=== PATIENT | female | born 1955 | race Caucasian/White ===

== ENCOUNTER 2024-10-14 16:26 | Inpatient (IN) ==
[2024-10-14] MEDS: Lactated Ringers SEPSIS* BAG 1,910 ML IV ONE (17:35)
[2024-10-14] MEDS: Piperacillin/Tazobac 3.375 BAG 3.375 GM/100 ML BAG IV ONE (17:36)
[2024-10-14 17:52] LABS: ABS Lymphocytes 1.6 10^3/uL (1.0-4.8); ABS Monocytes 1.4 10^3/uL (0.0-0.9); ABS Neutrophils 6.8 10^3/uL (1.5-7.6); ABS Nucleated RBC 0.01 10^3/ul; Eosinophil % 0.4 %; Hematocrit 33.6 % (35-45); Hemoglobin 11.1 g/dL (11.5-14.3); Lymphocyte % 16.6 %; Mean Corpuscular Volume 93.7 fL (80-97); Mean Platelet Volume 8.1 fL (7.5-11.2); Nucleated Red Blood Cells % 0.1 %/100WBC (0.0-0.8); Platelet Count 178 10^3/uL (150-450); Red Blood Count 3.59 10^6/uL (3.63-4.92); Red Cell Distribution Width 16.1 % (12-17); White Blood Count 9.9 10^3/uL (3.8-11.8)
[2024-10-14 17:54] LABS: Urine Appearance Clear; Urine Bilirubin Negative (Negative); Urine Blood 1+ (Negative); Urine Color Light-Yellow; Urine Glucose Negative (Negative); Urine Ketones Negative (Negative); Urine Nitrite Negative (Negative); Urine Protein 1+ (>=30 mg/dL) (Negative); Urine Specific Gravity 1.014 (1.002-1.030); Urine Urobilinogen Negative (Negative); Urine pH 5.5 (5.0-8.0)
[2024-10-14 18:15] LABS: INR 1.56 (0.85-1.14)
[2024-10-14 18:31] LABS: ALT 7 U/L (7-52); Albumin/Globulin Ratio 1.3 (1-3); Alkaline Phosphatase 54 U/L (35-149); Anion Gap 9 mmol/L (2-16); Blood Urea Nitrogen 19 mg/dL (6-24); C Reactive Protein 167.31 mg/L (<8.01); CO2 Carbon Dioxide 23 mmol/L (22-32); Calcium 7.7 mg/dL (8.6-10.3); Chloride 106 mmol/L (101-111); Creatinine, Serum 0.49 mg/dL (0.51-0.95); Globulin 2.4 g/dL (2-4); Glucose 95 mg/dL (70-100); Sodium 138 mmol/L (135-145); Total Bilirubin 0.4 mg/dL (0.2-1.0); Total Protein 5.4 g/dL (6.4-8.9); eGFR CKD-EPI 101.3 (>60)
[2024-10-14 18:44] LABS: Urine Bacteria Absent /HPF (Absent); Urine Red Blood Cell 2+(6-10/hpf) /HPF (0-Trace); Urine Squamous Epithelial Cell Present /HPF (Absent); Urine White Blood Cell 1+(6-10/hpf) /HPF (0-Trace)
[2024-10-14 19:23] LABS: Potassium Redraw 4.1 mmol/L (3.5-5.0)
[2024-10-14] MEDS: LaCOSAMide ORALSYR LIQ 10 MG/ML G TUBE SCH (21:30)
[2024-10-14] MEDS ORDERED: Senna TAB 8.6 mg TAB FEED TUBE PRN (22:09)
[2024-10-14] MEDS: Cefepime 2 GM in Dextrose 2 GM/50 ML BAG IV SCH (23:01)
[2024-10-15 06:22] LABS: ABS Eosinophils 0.1 10^3/uL (0.0-0.5); ABS Lymphocytes 1.5 10^3/uL (1.0-4.8); ABS Monocytes 1.1 10^3/uL (0.0-0.9); ABS Neutrophils 5.1 10^3/uL (1.5-7.6); Eosinophil % 1.6 %; Hematocrit 34.9 % (35-45); Hemoglobin 11.6 g/dL (11.5-14.3); Lymphocyte % 19.1 %; Mean Corpuscular Hemoglobin 30.6 pg (27-33); Mean Corpuscular Hgb Conc 33.1 g/dL (31-36); Mean Corpuscular Volume 92.5 fL (80-97); Mean Platelet Volume 8.7 fL (7.5-11.2); Platelet Count 189 10^3/uL (150-450); Red Blood Count 3.78 10^6/uL (3.63-4.92); Red Cell Distribution Width 16.4 % (12-17); White Blood Count 7.8 10^3/uL (3.8-11.8)
[2024-10-15 06:46] LABS: Calcium 9.4 mg/dL (8.6-10.3); Creatinine, Serum 0.61 mg/dL (0.51-0.95); Potassium 3.7 mmol/L (3.5-5.0); eGFR CKD-EPI 96.1 (>60)
[2024-10-15] MEDS: Famotidine SUSP ORALSYR 8 MG/ML PEG TUBE SCH (09:32)
[2024-10-16 05:51] LABS: ABS Basophils 0.1 10^3/uL (0.0-0.1); ABS Eosinophils 0.3 10^3/uL (0.0-0.5); ABS Lymphocytes 1.4 10^3/uL (1.0-4.8); ABS Monocytes 0.8 10^3/uL (0.0-0.9); ABS Neutrophils 3.5 10^3/uL (1.5-7.6); ABS Nucleated RBC 0.01 10^3/ul; Eosinophil % 4.8 %; Hematocrit 36.7 % (35-45); Hemoglobin 12.1 g/dL (11.5-14.3); Lymphocyte % 23.4 %; Mean Corpuscular Hemoglobin 30.4 pg (27-33); Mean Corpuscular Volume 91.9 fL (80-97); Mean Platelet Volume 8.4 fL (7.5-11.2); Nucleated Red Blood Cells % 0.2 %/100WBC (0.0-0.8); Platelet Count 216 10^3/uL (150-450); Red Blood Count 3.99 10^6/uL (3.63-4.92); Red Cell Distribution Width 16.2 % (12-17)
[2024-10-16 06:35] LABS: Creatinine, Serum 0.6 mg/dL (0.51-0.95); Potassium 4.3 mmol/L (3.5-5.0); eGFR CKD-EPI 96.5 (>60)
[2024-10-16] MEDS: Cefepime 2 GM in Dextrose 2 GM/50 ML BAG IV SCH (12:01)
[2024-10-17 06:23] LABS: ABS Basophils 0.1 10^3/uL (0.0-0.1); ABS Eosinophils 0.4 10^3/uL (0.0-0.5); ABS Lymphocytes 1.4 10^3/uL (1.0-4.8); ABS Monocytes 0.8 10^3/uL (0.0-0.9); ABS Neutrophils 2.8 10^3/uL (1.5-7.6); Eosinophil % 6.6 %; Hematocrit 35.9 % (35-45); Hemoglobin 11.9 g/dL (11.5-14.3); Lymphocyte % 26.4 %; Mean Corpuscular Hemoglobin 30.7 pg (27-33); Mean Corpuscular Hgb Conc 33.1 g/dL (31-36); Mean Corpuscular Volume 92.6 fL (80-97); Mean Platelet Volume 8.7 fL (7.5-11.2); Nucleated Red Blood Cells % 0.1 %/100WBC (0.0-0.8); Platelet Count 243 10^3/uL (150-450); Red Blood Count 3.88 10^6/uL (3.63-4.92); Red Cell Distribution Width 16.1 % (12-17); White Blood Count 5.4 10^3/uL (3.8-11.8)
[2024-10-17 06:42] LABS: Creatinine, Serum 0.62 mg/dL (0.51-0.95); Magnesium 2.2 mg/dL (1.9-2.7); Potassium 4.2 mmol/L (3.5-5.0); eGFR CKD-EPI 95.7 (>60)
[2024-10-18] MEDS ORDERED: Magnesium Hydroxide LIQ 30 ML UDC PO PRN (09:15)
[2024-10-18 11:20] LABS: Rapid COVID-19 Molecular Undetected (Undetected)
[2024-10-18] MEDS: Magnesium Hydroxide LIQ 30 ML UDC PO SCH (21:59)
[2024-10-19 09:47] VITALS: BP 100/62
== END 2024-10-19 10:50 | DRG 699 ==
LOC: ED 16:26 → EDHOLD 16:26 → SUATTDRO 20:10 → OBSVTOIN 20:10 → MED 23:28
PROVIDERS: ADMIT Internal Medicine; ATTEND Student in an Organized Health Care Education/Training Program

== ENCOUNTER 2024-10-26 17:26 | Inpatient (IN) ==
[2024-10-26 18:10] LABS: Hematocrit 39.7 % (35-45); Hemoglobin 13.1 g/dL (11.5-14.3); Mean Corpuscular Hemoglobin 30.7 pg (27-33); Mean Corpuscular Hgb Conc 33.1 g/dL (31-36); Mean Corpuscular Volume 92.9 fL (80-97); Platelet Count 325 10^3/uL (150-450); Red Blood Count 4.27 10^6/uL (3.63-4.92); Red Cell Distribution Width 16.2 % (12-17); White Blood Count 24.1 10^3/uL (3.8-11.8)
[2024-10-26] MEDS: Lactated Ringers 1000 ml BAG 1,000 ML IV SCH (18:10)
[2024-10-26] MEDS: cefTRIAXone 1 gm/50 mL D5W 1 GM/50 ML BAG IV ONE (18:10)
[2024-10-26 18:16] LABS: INR 1.4 (0.85-1.14)
[2024-10-26 18:38] LABS: ABS Basophils 0.1 10^3/uL (0.0-0.1); ABS Lymphocytes 1.1 10^3/uL (1.0-4.8); ABS Monocytes 1.4 10^3/uL (0.0-0.9); ABS Neutrophils 21.6 10^3/uL (1.5-7.6); ABS Nucleated RBC 0.01 10^3/ul; Eosinophil % 0.1 %; Lymphocyte % 4.4 %
[2024-10-26 18:44] LABS: Urine Appearance Turbid; Urine Bilirubin Negative (Negative); Urine Blood 3+ (Negative); Urine Color Yellow; Urine Glucose Negative (Negative); Urine Ketones Negative (Negative); Urine Nitrite 1+ (Negative); Urine Protein 1+ (>=30 mg/dL) (Negative); Urine Specific Gravity 1.021 (1.002-1.030); Urine Urobilinogen Negative (Negative); Urine pH 6.5 (5.0-8.0)
[2024-10-26 19:04] LABS: Albumin/Globulin Ratio 1.3 (1-3); Calcium 9.8 mg/dL (8.6-10.3); Creatinine, Serum 0.87 mg/dL (0.51-0.95); Globulin 3.2 g/dL (2-4); Potassium 4.3 mmol/L (3.5-5.0); Total Bilirubin 0.4 mg/dL (0.2-1.0); Total Protein 7.2 g/dL (6.4-8.9); eGFR CKD-EPI 71.6 (>60)
[2024-10-26 19:06] LABS: Urine Bacteria 1+ /HPF (Absent); Urine Red Blood Cell 3+(>10/hpf) /HPF (0-Trace); Urine Squamous Epithelial Cell Present /HPF (Absent); Urine White Blood Cell 3+(>20/hpf) /HPF (0-Trace)
[2024-10-26] MEDS ORDERED: Zosyn per Pharmacy NOTE FOLLOW UP SCH (21:00)
[2024-10-26] MEDS ORDERED: Naloxone Nasal Spray 4 MG/0.1 ML NASAL.SPR INTRANASAL PRN (21:06)
[2024-10-26 21:19] LABS: Urine Appearance Clear; Urine Bilirubin Negative (Negative); Urine Blood 3+ (Negative); Urine Color Light-Yellow; Urine Glucose Negative (Negative); Urine Ketones Negative (Negative); Urine Nitrite Negative (Negative); Urine Protein 1+ (>=30 mg/dL) (Negative); Urine Specific Gravity 1.014 (1.002-1.030); Urine Urobilinogen Negative (Negative)
[2024-10-26 21:27] LABS: Urine Bacteria Absent /HPF (Absent); Urine Red Blood Cell 3+(>10/hpf) /HPF (0-Trace); Urine Squamous Epithelial Cell Present /HPF (Absent); Urine White Blood Cell 3+(>20/hpf) /HPF (0-Trace)
[2024-10-26] MEDS: Lactated Ringers 1000 ml BAG 500 ML IV ONE (21:57)
[2024-10-26] MEDS: Piperacillin/Tazobac 3.375 BAG 3.375 GM/100 ML BAG IV ONE (21:58)
[2024-10-26] MEDS: Ibuprofen PED LIQ 100 MG/5 ML UDC PO ONE (21:59)
[2024-10-26] MEDS: LaCOSAMide ORALSYR LIQ 10 MG/ML G TUBE SCH (23:41)
[2024-10-27] MEDS: ZOSYN 3.375 GM Q8H per EXTENDED INFUSION IV SCH (03:04)
[2024-10-27 07:19] LABS: ABS Basophils 0.1 10^3/uL (0.0-0.1); ABS Lymphocytes 0.9 10^3/uL (1.0-4.8); ABS Monocytes 1.3 10^3/uL (0.0-0.9); ABS Neutrophils 16.6 10^3/uL (1.5-7.6); Eosinophil % 0.1 %; Hematocrit 35.1 % (35-45); Hemoglobin 11.7 g/dL (11.5-14.3); Mean Corpuscular Hemoglobin 31.2 pg (27-33); Mean Corpuscular Hgb Conc 33.3 g/dL (31-36); Mean Corpuscular Volume 93.7 fL (80-97); Mean Platelet Volume 8.1 fL (7.5-11.2); Platelet Count 233 10^3/uL (150-450); Red Blood Count 3.75 10^6/uL (3.63-4.92); Red Cell Distribution Width 16.1 % (12-17); White Blood Count 18.9 10^3/uL (3.8-11.8)
[2024-10-27 08:02] LABS: Calcium 8.9 mg/dL (8.6-10.3); Creatinine, Serum 0.8 mg/dL (0.51-0.95); Potassium 3.9 mmol/L (3.5-5.0); eGFR CKD-EPI 79.2 (>60)
[2024-10-27] MEDS: Famotidine SUSP ORALSYR 8 MG/ML G TUBE SCH (09:19)
[2024-10-27] MEDS: Lidocaine PATCH 5% PATCH TRANSDERM SCH (09:27)
[2024-10-28 06:13] LABS: ABS Basophils 0.1 10^3/uL (0.0-0.1); ABS Eosinophils 0.1 10^3/uL (0.0-0.5); ABS Lymphocytes 2.2 10^3/uL (1.0-4.8); ABS Monocytes 1.5 10^3/uL (0.0-0.9); ABS Neutrophils 8.5 10^3/uL (1.5-7.6); ABS Nucleated RBC 0.01 10^3/ul; Eosinophil % 0.9 %; Hematocrit 34.4 % (35-45); Hemoglobin 11.2 g/dL (11.5-14.3); Mean Corpuscular Hemoglobin 30.3 pg (27-33); Mean Corpuscular Hgb Conc 32.7 g/dL (31-36); Mean Corpuscular Volume 92.6 fL (80-97); Mean Platelet Volume 8.5 fL (7.5-11.2); Nucleated Red Blood Cells % 0.1 %/100WBC (0.0-0.8); Platelet Count 234 10^3/uL (150-450); Red Blood Count 3.71 10^6/uL (3.63-4.92); Red Cell Distribution Width 16.1 % (12-17); White Blood Count 12.4 10^3/uL (3.8-11.8)
[2024-10-28 07:04] LABS: Calcium 8.9 mg/dL (8.6-10.3); Creatinine, Serum 0.84 mg/dL (0.51-0.95); Magnesium 2.1 mg/dL (1.9-2.7); Potassium 4.2 mmol/L (3.5-5.0); eGFR CKD-EPI 74.7 (>60)
[2024-10-28] MEDS: Senna TAB 8.6 mg TAB FEED TUBE PRN (21:35)
[2024-10-29 06:38] LABS: ABS Basophils 0.1 10^3/uL (0.0-0.1); ABS Eosinophils 0.3 10^3/uL (0.0-0.5); ABS Lymphocytes 1.5 10^3/uL (1.0-4.8); ABS Monocytes 0.8 10^3/uL (0.0-0.9); Eosinophil % 3.6 %; Hematocrit 33.4 % (35-45); Hemoglobin 11.3 g/dL (11.5-14.3); Lymphocyte % 17.4 %; Mean Corpuscular Hgb Conc 33.8 g/dL (31-36); Mean Corpuscular Volume 91.6 fL (80-97); Mean Platelet Volume 8.2 fL (7.5-11.2); Platelet Count 227 10^3/uL (150-450); Red Blood Count 3.64 10^6/uL (3.63-4.92); Red Cell Distribution Width 15.9 % (12-17); White Blood Count 8.7 10^3/uL (3.8-11.8)
[2024-10-29 07:17] LABS: Calcium 8.8 mg/dL (8.6-10.3); Creatinine, Serum 0.75 mg/dL (0.51-0.95); Potassium 3.8 mmol/L (3.5-5.0); eGFR CKD-EPI 85.6 (>60)
[2024-10-29 09:25] VITALS: BP 117/68
[2024-10-29] MEDS ORDERED: Magnesium Hydroxide LIQ 30 ML UDC PO PRN (10:38)
[2024-10-29] MEDS: Magnesium Hydroxide LIQ 30 ML UDC PO SCH (11:17)
== END 2024-10-29 12:30 | DRG 698 ==
LOC: EDHOLD 17:26 → ED 17:26 → OBSVTOIN 20:20 → SUATTDRO 20:20 → MED 21:26
PROVIDERS: ADMIT Internal Medicine; ATTEND Internal Medicine